=== PATIENT | male | born 1975 | race Caucasian/White ===

== ENCOUNTER → 2024-02-04 | Outpatient (CLI) | payer OTHER, SELFPAY ==
--- NOTE | 2024-02-04 12:52 | NEURO_ITS ---
NCS and/or EMG Patient Report Ordering Doctor: Smith Storm DATE OF SERVICE: 02/04/24 Celeste is for electrodiagnostic testing of the lower limbs. Reports numbness and tingling in both feet and occasionally around the left hip. He has intermittent lower back pain. Electrodiagnostic findings: Left peroneal motor nerve demonstrates normal distal latency, amplitude and conduction velocity. Normal right peroneal motor response measured at the tibialis anterior. Normal tibial motor response bilaterally. Normal tibial and peroneal F?waves. Prolonged H?reflex bilaterally. Prolonged right sural latency. Borderline prolonged superficial peroneal latency bilaterally. Absent medial plantar response bilaterally. Needle EMG testing was performed in the lower limbs. All muscles tested, including lumbar paraspinals, showed no evidence of denervation with normal motor unit action potentials Electrodiagnostic impression: This is an abnormal study in the lower limbs 1. Electrodiagnostic findings suggestive of sensory polyneuropathy. 2. No electrodiagnostic evidence is noted for lumbosacral radiculopathy. [facility] Codes Neurology Neurology Interp Codes: 82449-45 [facility] test done w/n test comp (interp) (2) and 51048-38 [facility] cnd test 11-12 studies (interp)
== END | disposition home or self-care (01) ==
LOC: PSN 07:19
PROVIDERS: PCP Family Medicine; Referring Provider Orthopaedic Surgery Orthopaedic Surgery of the Spine; Visit Provider Orthopaedic Surgery Orthopaedic Surgery of the Spine
DX: M48.061 Spinal stenosis, lumbar region without neurogenic claudication (principal)
CPT/HCPCS: 95886; 95913